=== PATIENT | male | born 1940 | race Caucasian/White ===

== ENCOUNTER → 2020-06-05 14:19 | Outpatient (CLI) | payer MEDICARE, BC, SELFPAY ==
--- NOTE | 2020-06-05 14:26 | XR_ITS ---
PROCEDURE: XR CHEST 2V CLINICAL HISTORY: COMBINED SYSTOLIC AND DISASTOLIC CHF COMPARISON: No exams were available for comparison FINDINGS: There has been a prior CABG. The heart size is normal. No evidence of CHF. Diffuse prominence of the interstitial markings are noted consistent with pulmonary fibrosis. There is blunting of the CP angles which may be due to pleural thickening or small effusions. There is some patchy density in the right lower lung zone laterally which may be due to consolidation or summation density from overlying fibrotic change. There is thickening of the major fissure inferiorly noted on the lateral view. There has been a prior TAVR. No acute bony abnormalities. IMPRESSION: Pulmonary fibrotic changes with blunting of the CP angles with patchy infiltrate versus summation artifact in the right lower lung zone laterally Dictated by: Vishal Felix MD 06/05/2020 16:48 Vishal Felix MD in [place] 06/05/2020 16:48
== END ==
PROVIDERS: PCP Family Medicine; Visit Provider Family Medicine
DX: I50.40 Unspecified combined systolic (congestive) and diastolic (congestive) heart failure (principal)
CPT/HCPCS: 71046

== ENCOUNTER 2020-09-11 15:32 | Inpatient (IN) | payer MEDICARE, BC, SELFPAY ==
[2020-09-11] VITALS (20 sets, daily range): BP systolic 00–180; BP diastolic 00–90; PULSE 55–82; RESP 20–34; TEMP 34.1–36.7; O2SAT 90–100; BMI 24.7
--- NOTE | 2020-09-11 16:28 | XR_ITS ---
PROCEDURE: XR CHEST PORTABLE CLINICAL HISTORY: chf COMPARISON: CR XR CHEST 2V from 06/05/2020 FINDINGS: There is cardiomegaly with pulmonary venous congestion consistent with CHF. There is interstitial lung disease noted as before. There has been a prior CABG. Atelectatic changes are present in the right lung base. No effusions Coronary artery calcifications are noted and there are degenerative changes in the right shoulder. No acute bony abnormalities. IMPRESSION: CHF with chronic interstitial lung disease Dictated by: Vishal Felix MD 09/11/2020 17:14 Vishal Felix MD in [place] 09/11/2020 17:14
--- NOTE | 2020-09-11 16:35 | HMH.HP ---
*Admission Date: 09/11/20 *Chief complaint: Shortness of breath *History of present illness: 80 year old male with history of CAD, Aortic Valve replacement, and LV dysfunction(43% 01/2020) presented to the office today with incresing weakness, SOA, and pedal edema. Patient had been seen in the office two weeks prior and was noted to have progressive edema to the knees and bibasilar rales. He denied fevers or significant sputum production. He denied chest pain. Patient was very pale in appearance. Due to signs of progressive fluid overload patient was admitted for treatment [facility] History I have reviewed the patient's past medical history: Yes Medical History: Reports:: Atrial Fibrillation, Congestive Heart Failure, Coronary Artery Disease, Diabetes Mellitus Type 2, Valvular Heart Disease *Have you ever received a pneumonia vaccine?: Yes *Have you received a flu vaccine this season?: Yes Other Medical History: Reports: Other Comment:: Idiopathic Pulmonary Fibrosis Other Surgeries: Yes: CABG, Cardiac Catheterization, Cardiac Surgery, Other Valve Replacement (Aortic) - *Social History Smoking Status: Never smoker Alcohol Intake: never Substance Use Type: denies use *Occupational Status:: retired *Travel in the last 8 weeks: None Family Hx:: No significant family history Review of Systems - Constitutional Reports anorexia, Reports body ache(s), Reports weight gain, Denies increased appetite - Eyes Denies blurry vision - ENT Denies abnormal hearing, Denies difficulty swallowing - *Cardiovascular Reports shortness of breath, Reports shortness of breath with activity, Reports generalized swelling, Denies chest pain at rest - *Respiratory Reports chest congestion, Reports cough, Reports shortness of breath, Denies excessive phlegm production - *Gastrointestinal Denies belching, Denies constipation - *Genitourinary Denies difficulty urinating - *Musculoskeletal Denies joint pain - Integumentary/Breasts Denies hair loss - *Neurologic Reports abnormal hearing - Psychiatric Denies lack of enjoyment - Endocrine Denies excessive sweating Meds Home Medications Medication Instructions Recorded Confirmed Type Apixaban [Eliquis 5mg Tablet] 5 mg PO BID 09/11/20 09/11/20 History Atorvastatin Calcium [Lipitor 40mg 40 mg PO HS 09/11/20 09/11/20 History Tab] Furosemide [Furosemide 20mg Tab*] 20 mg PO DAILY 09/11/20 09/11/20 History Potassium Chloride [Klor-con 20 20 meq PO DAILY 09/11/20 09/11/20 History mEq tablet] Temazepam [Restoril] 15 mg PO HS 09/11/20 09/11/20 History Allergies Allergy/AdvReac Type Severity Reaction Status Date / Time No Known Allergies Allergy Verified 09/11/20 16:56 Exam Vital signs and Labs for Last 24 Hours: Temp Pulse Resp BP Pulse Ox 93.9 F L 66 24 92/62 L 90 L 09/11/20 15:55 09/11/20 15:55 09/11/20 15:55 09/11/20 15:55 09/11/20 15:55 Laboratory Results - last 24 hr 09/11/20 17:00: WBC 10.4, RBC 1.91 L*, Hct 17.6 L*, MCV 92.0, MCH 27.0, MCHC 29.4 L, RDW 18.9 H, Plt Count 245, MPV 9.6, Neut % (Auto) 85.0 H, Lymph % (Auto) 9.5 L, [place] % (Auto) 5.3, Eos % (Auto) 0.2, Baso % (Auto) 0.1, Neut # (Auto) 8.8 H, Lymph # (Auto) 1.0, [place] # (Auto) 0.6, Eos # (Auto) 0.0, Baso # (Auto) 0.0 09/11/20 17:00: Sodium 137, Potassium 4.8, Chloride 102, Carbon Dioxide 10 L, Anion Gap 29.8 H, BUN 96 H, Creatinine 2.20 H, Estimated Creat Clear 30, Estimated GFR 29 L, Est GFR ( Amer) 35 L, Glucose 108 H, Calcium 8.8, Total Bilirubin 1.0, AST 100 H, ALT 73, Alkaline Phosphatase 73, Troponin I 0.07 H, Total Protein 6.5, Albumin 3.6, Globulin 2.9, Albumin/Globulin Ratio 1.2 09/11/20 17:00: NT-Pro-B Natriuret Pep 23554 H 09/11/20 17:00: Lactate 9.4 H I & O for Last 24 hours: Intake & Output 09/09/20 09/10/20 09/11/20 09/12/20 11:59 11:59 11:59 11:59 Weight 182 lb - Constitutional no acute distress Comments: sallow - *Routine HEENT Exam Head: Pre
[2020-09-11 17:23] LABS: Basophils % 0.1 % (0.1-2.0); Eosinophils % 0.2 % (0.1-12.0); Lymphocytes % 9.5 % (10-50); Mean Corpuscular HGB Conc 29.4 g/dL (31.8-35.4); Mean Platelet Volume 9.6 fl (7.4-10.4); Monocytes # 0.6 K/mm3 (0.1-1.0); Monocytes % 5.3 % (1.7-9.3); Neutrophils # 8.8 K/mm3 (1.8-7.8); Platelet Count 245 K/mm3 (142-424); Red Blood Count 1.91 M/mm3 (4.60-6.20); Red Cell Distribution Width 18.9 % (11.5-17.5); White Blood Count 10.4 K/mm3 (4.8-10.8)
[2020-09-11 17:36] LABS: Hematocrit 17.6 % (42.0-52.0)
[2020-09-11 17:38] LABS: MANUAL DIFFERENTIAL MANUAL DIFFERENTIAL (MANUAL DIFF)
[2020-09-11 17:42] LABS: Chloride 102 mmol/L (98-107); Potassium 4.8 mmoL/L (3.5-5.1); Sodium 137 mmol/L (136-145)
[2020-09-11 17:45] LABS: Alanine Aminotransferase 73 U/L (12-78); Alkaline Phosphatase 73 U/L (38-126); Anion Gap 29.8 mEq/L (5-15); Aspartate Amino Transferase 100 U/L (17-59); Creatinine Clearance Estimated 30 mL/min (50-200); Estimated Glomerular Filt Rate 29 ml/min (>60); GFR (African American) 35 ML/MIN (>60)
[2020-09-11 17:46] LABS: Albumin Level 3.6 g/dl (3.5-5.0); Albumin/Globulin Ratio 1.2 (1.1-1.8); Calcium 8.8 mg/dl (8.4-10.2); Globulin 2.9 g/dL (1.3-3.2); Glucose 108 mg/dl (74-100); Total Protein,Serum 6.5 g/dl (6.3-8.2)
--- NOTE | 2020-09-11 17:47 | ECG_ITS ---
APPROVED REPORT Exam: Resting ECG HR:69 bpm ECG Measurements Heart Rate 69 AXES ND 264 P 83 QRSd 174 QRS 119 QT 476 T -83 QTc 510 Conclusion Sinus rhythm with 1st degree AV block with premature atrial complexes with aberrant conduction Right bundle branch block T wave abnormality, consider inferolateral ischemia Abnormal ECG Electronically signed by : Edwardo Smith, 09/11/2020 21:33:23
[2020-09-11 17:55] LABS: NT Pro Brain Natriuretic Pep. 14600 pg/mL (0-450)
[2020-09-11 17:57] LABS: Troponin I 0.07 ng/ml (0.00-0.034)
[2020-09-11 18:15] LABS: Lactic Acid 9.4 mmol/L (0.7-2.1)
[2020-09-11 18:17] LABS: Blood Urea Nitrogen 96 mg/dl (9-20); Carbon Dioxide 10 mmol/L (22.0-30.0)
--- NOTE | 2020-09-11 19:12 | PC.NURSE ---
PRN tylenol 650 mg given at this time, po. Received order for 650 mg po prn q [address] Ennis.
[2020-09-11 19:56] LABS: Lymphocytes % 10 % (10-50); Monocytes % 16 % (2-9); Neutrophils % 74 % (42-76); Total Cells Counted 100
[2020-09-11 19:58] LABS: Anisocytosis 1+; Macrocytosis 1+; Microcytosis 1+
[2020-09-11 19:59] LABS: Hypochromasia 2+; Platelet Estimate Normal
--- NOTE | 2020-09-11 20:26 | PC.NURSE ---
Dr. Ennis made aware of critical lab values and ordered x 2 units of blood. PRN tylenol and zofran ordered per mar. CB in reach. Dr. Ennis doesn't want a bolus with lactic of 9.4 at this time. Pt is soa and very edematous in ble, 2-4 plus pitting an has chf.Rocephin was given per mar with pt's sirs and bp on the lower end, Dr. Ennis was made aware of. Pt has been on bare hugger as well for temp of 93.3 when arriving as a direct admit. Pts stated meds taken and gave list, but wasn't completely sure of all meds. Report given to Lynda Kiser RN.
[2020-09-11 20:43] LABS: Hemoglobin 5.2 g/dL (14.1-18.0)
[2020-09-11 21:17] LABS: Reflex Lactic Add Lactic Reflex
[2020-09-11 21:27] LABS: POC Glucose,Bedside 95 (70-110)
[2020-09-11 21:34] LABS: ABG Base Excess -26.4 mmol/L (-2.4-2.3); ABG HCO3 6.1 mmhg (22.0-26.0); ABG Oxygen Saturation 100 % (90-100); ABG PCO2 29.9 mmhg (35.0-45.0); ABG PO2 471.9 mmhg (80-100)
--- NOTE | 2020-09-11 21:39 | ECG_ITS ---
APPROVED REPORT Exam: Resting ECG HR:107 bpm ECG Measurements Heart Rate 107 AXES [place] 224 P QRSd 162 QRS 120 QT 376 T -88 QTc 501 Conclusion Sinus tachycardia with 1st degree AV block Nonspecific intraventricular block Possible Right ventricular hypertrophy Lateral infarct, age undetermined T wave abnormality, consider inferior ischemia T wave abnormality, consider anterior ischemia Abnormal ECG Electronically signed by : Edwardo Smith, 09/12/2020 21:33:37
--- NOTE | 2020-09-11 21:39 | XR_ITS ---
PROCEDURE INFORMATION: Exam: XR Chest Exam date and time: 09/11/2020 9:39 PM Age: 80 years old Clinical indication: Other: Patient stopped breathing on his own, code blue. ; Additional info: Intubation TECHNIQUE: Imaging protocol: XR of the chest. Views: 1 view. COMPARISON: CR XR CHEST PORTABLE 09/11/2020 4:37 PM FINDINGS: Tubes, catheters and devices: Endotracheal tube in good position; Pacer pad projects over the left hemithorax Lungs: Moderate interstitial prominence. Pleural spaces: Unremarkable. No pleural effusion. No pneumothorax. Heart/Mediastinum: Moderate cardiac enlargement Bones/joints: Unremarkable. Other findings: Rotation. IMPRESSION: 1. Endotracheal tube in good position 2. Findings concerning for CHF and edema
[2020-09-11 21:49] LABS: Microscopic, Urine URINE MICROSCOPIC (MICROSCOPIC)
[2020-09-11 21:51] LABS: Appearance,Urine CLEAR (Clear); Bilirubin,Urine Negative (Negative); Blood, Urine Negative (Negative); Color,Urine YELLOW (Yellow); Glucose,Urine (UA) Negative (Negative); Ketones,Urine Negative (Negative); Leukocyte Esterase,Urine Negative (Negative); Nitrate,Urine Negative (Negative); PH,Urine 5.5 (5.0-8.5); Protein,Urine Negative (Negative); Urobilinogen,Urine 0.2 EU/dl (0.2)
[2020-09-11 21:52] LABS: Calcium 8.6 mg/dl (8.4-10.2); Chloride 103 mmol/L (98-107); Creatinine Clearance Estimated 25 mL/min (50-200); Estimated Glomerular Filt Rate 23 ml/min (>60); GFR (African American) 28 ML/MIN (>60); Sodium 137 mmol/L (136-145)
[2020-09-11 21:55] LABS: Anion Gap 35.2 mEq/L (5-15)
[2020-09-11 21:58] LABS: Blood Urea Nitrogen 95 mg/dl (9-20); Carbon Dioxide < 5 mmol/L (22.0-30.0)
[2020-09-11 22:00] LABS: Potassium 6.2 mmoL/L (3.5-5.1)
[2020-09-11 22:02] LABS: Glucose 59 mg/dl (74-100)
[2020-09-11 22:03] LABS: Lactic Acid Follow Up (RFLX 1) 12.1 mmol/L (0.7-2.1)
[2020-09-11 22:04] LABS: Troponin I 0.19 ng/ml (0.00-0.034)
[2020-09-11 22:09] LABS: Basophils % 0.2 % (0.1-2.0); Eosinophils % 0.1 % (0.1-12.0); Lymphocytes # 2.6 K/mm3 (0.7-4.5); Lymphocytes % 18.4 % (10-50); Mean Corpuscular HGB Conc 28.4 g/dL (31.8-35.4); Mean Corpuscular Hemoglobin 27.1 pg (27.0-31.2); Mean Corpuscular Volume 95.3 fl (80-94); Mean Platelet Volume 9.8 fl (7.4-10.4); Monocytes # 0.8 K/mm3 (0.1-1.0); Monocytes % 5.8 % (1.7-9.3); Neutrophils # 10.7 K/mm3 (1.8-7.8); Neutrophils % 75.5 % (37.0-80.0); Platelet Count 293 K/mm3 (142-424); Red Blood Count 1.83 M/mm3 (4.60-6.20); Red Cell Distribution Width 18.7 % (11.5-17.5); White Blood Count 14.2 K/mm3 (4.8-10.8)
[2020-09-11 22:31] LABS: Hematocrit 17.4 % (42.0-52.0)
--- NOTE | 2020-09-11 23:11 | HMH.RR ---
Acute Rapid Response Note - Subjective Date Responded: 09/11/20 Time Responded: 21:15 Provider Note: called madelin villanueva red with pt with acute resp failure and dec bp and response to stimuli - on arrival not breathing and resp assistance started - ppulse w/o bp and no resp to stimuli- pt with ivf and brief cpr as he lost pulse with acls protocol - pt was intubated with 7.5 et tube w/o diff and good position by all measures - given ivf and abg and and labs obtained and ekg which was similar to prev- - discussed with dr escalera and family- pt was spont resp and intact blood pressure with labs pending - Objective Findings: Vital Signs - Last 4 Hours Temperature 98.1 F 09/11/20 20:57 Temperature Source Rectal 09/11/20 20:57 Pulse Rate 63 09/11/20 20:00 Respiratory Rate 34 H 09/11/20 20:00 Blood Pressure 110/40 L 09/11/20 20:00 Blood Pressure Mean 63 09/11/20 20:00 Blood Pressure Source Automatic Cuff 09/11/20 20:00 Blood Pressure Position Supine 09/11/20 20:00 02 Sat by Pulse Oximetry 97 09/11/20 20:00 Oxygen Delivery Method 09/11/20 20:00 Oxygen Flow Rate (LPM) 3 09/11/20 20:00 Lab Results for Past 12 Hours 09/11/20 21:45: Urine Color Yellow, Urine Appearance Clear, Urine pH 5.5, Ur Specific [place] 1.020, Urine Protein Negative, Urine Glucose (UA) Negative, Urine Ketones Negative, Urine Blood Negative, Urine Nitrate Negative, Urine Bilirubin Negative, Urine Urobilinogen 0.2, Ur Leukocyte Esterase Negative 09/11/20 21:35: Sodium 137, Potassium 6.2 H* D, Chloride 103, Carbon Dioxide < 5 L* D, Anion Gap 35.2 H, BUN 95 H, Creatinine 2.70 H D, Estimated Creat Clear 25, Estimated GFR 23 L, Est GFR ( Amer) 28 L, Glucose 59 L D, Calcium 8.6, Troponin I 0.19 H 09/11/20 21:35: WBC 14.2 H D, RBC 1.83 L*, Hct 17.4 L*, MCV 95.3 H, MCH 27.1, MCHC 28.4 L, RDW 18.7 H, Plt Count 293, MPV 9.8, Neut % (Auto) 75.5, Lymph % (Auto) 18.4, [place] % (Auto) 5.8, Eos % (Auto) 0.1, Baso % (Auto) 0.2, Neut # (Auto) 10.7 H, Lymph # (Auto) 2.6, [place] # (Auto) 0.8, Eos # (Auto) 0.0, Baso # (Auto) 0.0 09/11/20 21:19: POC Glucose 95 09/11/20 21:12: Lactate 12.1 H 09/11/20 20:20: Blood Type Confirm B Positive 09/11/20 19:05: Blood Type B Positive, Antibody Screen Negative, Crossmatch ([facility]) See Detail 09/11/20 17:00: Lactate 9.4 H 09/11/20 17:00: NT-Pro-B Natriuret Pep 62204 H 09/11/20 17:00: Sodium 137, Potassium 4.8, Chloride 102, Carbon Dioxide 10 L, Anion Gap 29.8 H, BUN 96 H, Creatinine 2.20 H, Estimated Creat Clear 30, Estimated GFR 29 L, Est GFR ( Amer) 35 L, Glucose 108 H, Calcium 8.8, Total Bilirubin 1.0, AST 100 H, ALT 73, Alkaline Phosphatase 73, Troponin I 0.07 H, Total Protein 6.5, Albumin 3.6, Globulin 2.9, Albumin/Globulin Ratio 1.2 09/11/20 17:00: WBC 10.4, RBC 1.91 L*, Hgb 5.2 L*, Hct 17.6 L*, MCV 92.0, MCH 27.0, MCHC 29.4 L, RDW 18.9 H, Plt Count 245, MPV 9.6, Neut % (Auto) 85.0 H, Lymph % (Auto) 9.5 L, [place] % (Auto) 5.3, Eos % (Auto) 0.2, Baso % (Auto) 0.1, Neut # (Auto) 8.8 H, Lymph # (Auto) 1.0, [place] # (Auto) 0.6, Eos # (Auto) 0.0, Baso # (Auto) 0.0, Total Counted 100, Neutrophils % (Manual) 74, Lymphocytes % (Manual) 10, Monocytes % (Manual) 16 H, Platelet Estimate Normal, RBC Morphology Not Reportable, Hypochromasia 2+, Anisocytosis 1+, Microcytosis 1+, Macrocytosis 1+ My Orders Category Date Time Status Chest XR -- portable [XR chest portable] Stat Exams 09/11/20 21:39 Completed BMP [Basic Metabolic Panel] Stat Lab 09/11/20 21:35 Completed CBC [Complete Blood Count Auto Diff] Stat Lab 09/11/20 21:35 Results Trop I [Troponin I] Stat Lab 09/11/20 21:35 Completed ABG [Arterial Blood Gas] Stat RT 09/11/20 21:38 Ordered 12-lead EKG Request [ECG Request by /Angélica] Stat Y 09/11/20 21:39 Ordered - Radiology Findings #1 Xray Reviewed: Chest Image Reviewed: Yes I reviewed the patient's radiology image ED XR Results: Abnormal (et tube ok) - ECG Data Tracing #1 Arrhythmias present: sinus tach Is
--- NOTE | 2020-09-11 23:35 | PC.NURSE ---
Report received from Robinson Lamas RN. At shift change, pt was uncomfortable and requested to be repositioned. He also c/o soa. Pt was noted to have pulled IV out accidentally. New IV was placed . #20 in LFA. Bed linens was changed. Consent for blood was obtained and placed on chart. Rectal temp was obtained 98.1. Lab was called for update on blood transfusion.Lab came to room shortly after to obtain labs and then told staff that was concerned about how pt was acting. After entering room pt was noted to be nonresponsive with agonal breathing. 2115 shallow pulse noted. 2116. Rapid red response initiated. 2118 MD Tucker at bedside. Pt intubated 2119. 2124 FSBS 95. 2124 F/C placed. Urine obtained and sent to lab. At 2121 No pulse obtained. CPR initiated. 2121 Epinephrine 1 mg. Atropine 1 mg admin 2122. Pulse obtained @ 2123. Sinus with BBB. 2139 2 amp Bicarb administered. MD Smith notified of pt status. 2143 MD Smith spoke with MD Tucker on phone. 2152 MD Smith notified of difficulty maintaining pressure. New orders received. Levophed gtt. Titrate to maintain MAP of 65 or greater. Pt moved to new room. 2252, updated on status of pt, labs and that blood was not ready yet. 4 BP not able to be obtained. Levophed gtt max @ 30 mcg/min. Blood not ready yet according to lab. states he is coming in to talk to family.
[2020-09-11 23:42] LABS: Reflex Lactic (2 hrs) Add Lactic Reflex
[2020-09-11 23:50] LABS: ABG Base Excess -25.5 mmol/L (-2.4-2.3); ABG HCO3 6.3 mmhg (22.0-26.0); ABG Oxygen Saturation 100 % (90-100); ABG PCO2 28.5 mmhg (35.0-45.0); ABG PO2 436.5 mmhg (80-100); ABG TCO2 7.2 mmhg (23-27); Oxygen 100% %
[2020-09-11 23:51] LABS: Allen's Test Non Applicable; PEEP 5; Source Right Femoral; Vent Rate 14
[2020-09-11 23:55] LABS: ABG PH 6.97 mmol/L (7.35-7.45)
[2020-09-12] VITALS (21 sets, daily range): BP systolic 00–191; BP diastolic 00–80; PULSE 74–87; RESP 20–35; TEMP 35.7–36.9; O2SAT 100; BMI 26.9
--- NOTE | 2020-09-12 | PC.NURSE ---
MD Smith at bedside speaking with family about pt status. Family signed DNR and do not want further interventions if pt codes. New orders received. Lovenox per VTE protocol, Protonix 40 mg IV. Start Dopamine at 0200 if pt maintains BP above 100 systolic. DC additonal Lactic acid. No 2 hr post H&H.
[2020-09-12 00:02] LABS: Allen's Test Non Applicable; Oxygen 100% %; Source Right Femoral
[2020-09-12 00:03] LABS: ABG PH 6.93 mmol/L (7.35-7.45)
[2020-09-12 00:11] LABS: Squamous Epithelial Cell,Urine Occasional #/hpf (0-5); WBC,Urine Occasional #/hpf (0-3)
--- NOTE | 2020-09-12 01:44 | PC.NURSE ---
Spoke with TAWANNA about pt status. They will continue to monitor.
--- NOTE | 2020-09-12 03:15 | PC.NURSE ---
There was difficulty obtaining VS during blood transfusions.
--- NOTE | 2020-09-12 04:50 | PC.NURSE ---
aware that blood is being transfused emergently
[2020-09-12 05:09] LABS: Hemoglobin 4.9 g/dL (14.1-18.0)
--- NOTE | 2020-09-12 06:02 | PC.NURSE ---
FSBS 29. Stat glucose ordered. D50 amp administered. Pt went asystole then HEartbeat returned. MD notified of pt status. Glucose checked again resulting 41. Amp D50 administered. Pt went asystole again, then heartbeat returned. Pt has been bradycardic then returning to asystole. BP 0545 70/38. 0550 70/20. Family at bedside and aware of pt status.
--- NOTE | 2020-09-12 06:11 | PC.NURSE ---
No BP obtained at this time.
--- NOTE | 2020-09-12 06:15 | PC.NURSE ---
MD notified that family wants to turn off all gtts. Levophed turned off. Dopamine gtt turned off.
--- NOTE | 2020-09-12 06:44 | PC.NURSE ---
Pt asystole. SKIP CHOI paged.
--- NOTE | 2020-09-12 07:00 | P.DN_ITS ---
Pronouncement Note - Date and Time of Date of : 09/12/20 Time of : 06:38 - PCOD Preliminary cause of : Congestive heart failure - Additional Data Confirmation of : no pulse, no respirations, pupils fixed and dilated Family: at bedside Attending/PCP notified?: Yes Attending physician: Edwardo Ennis MD Was code activated?: No Autopsy requested?: No motor vehicle examiner notified?: No Organ bank notified?: Yes Advance directives: Yes
--- NOTE | 2020-09-12 07:07 | PC.NURSE ---
Pt at 0638. Cornel notified and ruled out for donation. case # [id number] Priya Cueva.
--- NOTE | 2020-09-12 07:08 | PC.NURSE ---
Plant Protection Supervisor consulted and ruled out.
--- NOTE | 2020-09-12 07:31 | HMH.DCSUM ---
General - General Admission date:: 09/11/20 Discharge date: 09/12/20 HPI HPI: 80 year old male with history of CAD, Aortic Valve replacement, and LV dysfunction(43% 01/2020) presented to the office today with incresing weakness, SOA, and pedal edema. Patient had been seen in the office two weeks prior and was noted to have progressive edema to the knees and bibasilar rales. He denied fevers or significant sputum production. He denied chest pain. Patient was very pale in appearance. Due to signs of progressive fluid overload patient was admitted for treatment Hospital Course Hospital Course: Patient was admitted and found to be profoundly anemic with a hemoglobin of 5.2. Patient's last hemoglobin for comparison was in late July and was greater than 11. Patient's reports 3 days prior patient had had a large dark bowel movement but because he was on iron she had not thought it significant at the time. The patient had not complained of any melena. Patient was typed and crossed and plan was to transfuse 2 units of packed red blood cells. Due to high suspicion for GI bleed patient was started on pantoprazole. Patient takes Eliquis and aspirin at home for coronary artery disease and history of A. fib. These medications were held. Patient's anemia along with acute kidney injury contributed to metabolic acidosis which was the reason for his elevated lactic acid. Patient also had signs of acute congestive heart failure. Patient's EF is 43% on echocardiogram performed at outside facility in January 2020. Plan had been to repeat echocardiogram on the morning of September 12. Patient was hypothermic on presentation. This is also due to his anemia and blood loss. Bear hugger was used to warm the patient and his temperature returned to normal. Blood cultures were drawn and patient was empirically started on Rocephin. Suspicion for infection was low. On the evening of admission a rapid response read was called that transition to a CODE BLUE. Patient ended up intubated and was placed on vasopressors to maintain his blood pressure. Patient's prognosis was poor. Blood transfusion was started. Dr. Mayo, the on-call physician, spoke with the family and decision was made to maintain the intubated state but patient was made a DO NOT RESUSCITATE. On the morning of September 12 family recommended withdrawal of life support measures. They are which was granted. Patient passed and was pronounced early on the morning of September 12. Objective Vital signs: Temp Pulse Resp BP Pulse Ox 97.7 F 87 24 70/20 L 100 09/12/20 05:00 09/12/20 05:00 09/12/20 05:00 09/12/20 05:50 09/12/20 05:00 Results Labs on day of discharge: Labs from last 24 hours 09/11/20 09/11/20 09/11/20 23:40 21:45 21:35 WBC RBC Hgb Hct MCV MCH MCHC RDW Plt Count MPV Neut % (Auto) Lymph % (Auto) [place] % (Auto) Eos % (Auto) Baso % (Auto) Neut # (Auto) Lymph # (Auto) [place] # (Auto) Eos # (Auto) Baso # (Auto) Total Counted Neutrophils % (Manual) Lymphocytes % (Manual) Monocytes % (Manual) Platelet Estimate RBC Morphology Hypochromasia Anisocytosis Microcytosis Macrocytosis Specimen Source Right femoral O2 % 100% ABG pH 6.97 L* ABG pCO2 28.5 L ABG pO2 436.5 H ABG HCO3 6.3 L ABG Total CO2 7.2 L ABG O2 Saturation 100 ABG Base Excess -25.5 L Vishal Test Non applicable Vent Rate 14 PEEP 5 Sodium 137 Potassium 6.2 H* D Chloride 103 Carbon Dioxide < 5 L* D Anion Gap 35.2 H BUN 95 H Creatinine 2.70 H D Estimated Creat Clear 25 Estimated GFR 23 L Est GFR ( Amer) 28 L Glucose 59 L D POC Glucose Lactate Calcium 8.6 Total Bilirubin AST ALT Alkaline Phosphatase Troponin I 0.19 H NT-Pro-B Natriuret Pep Total Protein Albumin Globulin
--- NOTE | 2020-09-12 07:32 | PC.NURSE ---
Post Mortem care being provided. Pt's family want pt to go to [facility].
--- NOTE | 2020-09-12 08:07 | PC.NURSE ---
received report from Lynda gonzalez at approx [phone]. Will call [facility] when family is ready
--- NOTE | 2020-09-12 08:34 | HMH.ACPN2 ---
Internal Medicine - PN: Subj *Date: 09/12/20 *Time: 08:34 Interval history: Late entry cross cover internal medicine note: I was called on cross cover after the rapid response where patient became intubated. Patient became hypotensive and exhibited signs of systemic shock. I came to the hospital to evaluate patient, discussed case with family, etc. Briefly, patient was in severe cardiogenic shock with gallop rhythm, severely poor perfusion, hypotensive. Chest x-ray revealed significant cardiomegaly. Patient was severely anemic with hemoglobin of 4. Transfusion of 2 units was given, patient was maxed out on Levophed drip and ventilator settings were adjusted to try to help acidosis. I had a lonnie discussion with his and son and indicated that his overall mortality rate was extremely high based on the severe nature of his shock and evidence of his cardiomegaly and severe systolic heart failure. Patient's decided to transition his care to no CPR/no shock, we continued pressors, fluids and ventilatory support. However, as expected the patient became more bradycardic and perfusion status worsened over the next 4 to 5 hours. Around 5 AM the family asked that pressor support we withdrawn and the patient as noted. Please note 2 hours critical care time including personal exam, discussion with family, record review. Exam Vital signs and Labs for Last 24 Hours: Temp Pulse Resp BP Pulse Ox 97.7 F 87 24 70/20 L 100 09/12/20 05:00 09/12/20 05:00 09/12/20 05:00 09/12/20 05:50 09/12/20 05:00 Laboratory Results - last 24 hr 09/11/20 17:00: WBC 10.4, RBC 1.91 L*, Hgb 5.2 L*, Hct 17.6 L*, MCV 92.0, MCH 27.0, MCHC 29.4 L, RDW 18.9 H, Plt Count 245, MPV 9.6, Neut % (Auto) 85.0 H, Lymph % (Auto) 9.5 L, [place] % (Auto) 5.3, Eos % (Auto) 0.2, Baso % (Auto) 0.1, Neut # (Auto) 8.8 H, Lymph # (Auto) 1.0, [place] # (Auto) 0.6, Eos # (Auto) 0.0, Baso # (Auto) 0.0, Total Counted 100, Neutrophils % (Manual) 74, Lymphocytes % (Manual) 10, Monocytes % (Manual) 16 H, Platelet Estimate Normal, RBC Morphology Not Reportable, Hypochromasia 2+, Anisocytosis 1+, Microcytosis 1+, Macrocytosis 1+ 09/11/20 17:00: Sodium 137, Potassium 4.8, Chloride 102, Carbon Dioxide 10 L, Anion Gap 29.8 H, BUN 96 H, Creatinine 2.20 H, Estimated Creat Clear 30, Estimated GFR 29 L, Est GFR ( Amer) 35 L, Glucose 108 H, Calcium 8.8, Total Bilirubin 1.0, AST 100 H, ALT 73, Alkaline Phosphatase 73, Troponin I 0.07 H, Total Protein 6.5, Albumin 3.6, Globulin 2.9, Albumin/Globulin Ratio 1.2 09/11/20 17:00: NT-Pro-B Natriuret Pep 04065 H 09/11/20 17:00: Lactate 9.4 H 09/11/20 19:05: Blood Type B Positive, Antibody Screen Negative, Crossmatch ([facility]) See Detail 09/11/20 20:20: Blood Type Confirm B Positive 09/11/20 21:12: Lactate 12.1 H 09/11/20 21:19: POC Glucose 95 09/11/20 21:32: Specimen Source Right femoral, O2 % 100%, ABG pH 6.93 L*, ABG pCO2 29.9 L, ABG pO2 471.9 H, ABG HCO3 6.1 L, ABG Total CO2 7.0 L, ABG O2 Saturation 100, ABG Base Excess -26.4 L, Vishal Test Non applicable 09/11/20 21:35: WBC 14.2 H D, RBC 1.83 L*, Hgb 4.9 L*, Hct 17.4 L*, MCV 95.3 H, MCH 27.1, MCHC 28.4 L, RDW 18.7 H, Plt Count 293, MPV 9.8, Neut % (Auto) 75.5, Lymph % (Auto) 18.4, [place] % (Auto) 5.8, Eos % (Auto) 0.1, Baso % (Auto) 0.2, Neut # (Auto) 10.7 H, Lymph # (Auto) 2.6, [place] # (Auto) 0.8, Eos # (Auto) 0.0, Baso # (Auto) 0.0 09/11/20 21:35: Sodium 137, Potassium 6.2 H* D, Chloride 103, Carbon Dioxide < 5 L* D, Anion Gap 35.2 H, BUN 95 H, Creatinine 2.70 H D, Estimated Creat Clear 25, Estimated GFR 23 L, Est GFR ( Amer) 28 L, Glucose 59 L D, Calcium 8.6, Troponin I 0.19 H 09/11/20 21:45: Urine Color Yellow, Urine Appearance Clear, Urine pH 5.5, Ur Specific [place] 1.020, Urine Protein Negative, Urine Glucose (UA) Negative, Urine Ketones Negative, Urine Blood Negative, Urine Nitrate Negative, Urine Bilirubin Negative, Urine Urobilinogen 0.2, Ur Leukocyte Esterase Negative, Urine RBC
--- NOTE | 2020-09-12 09:19 | PC.NURSE ---
[facility] present at this time
[2020-09-13 18:44] LABS: Peripheral Smear Review Scanned Result
== END 2020-09-12 09:30 | disposition expired | DRG 377 ==
PROVIDERS: Emergency Medicine; Admitting Provider Family Medicine; PCP Family Medicine; Visit Provider Family Medicine
DX: I50.23 Acute on chronic systolic (congestive) heart failure (principal); K92.2 Gastrointestinal hemorrhage, unspecified; J96.00 Acute respiratory failure, unspecified whether with hypoxia or hypercapnia; D62 Acute posthemorrhagic anemia; N17.9 Acute kidney failure, unspecified; E87.2 Acidosis; Z20.822 Contact with and (suspected) exposure to COVID-19; I48.91 Unspecified atrial fibrillation; I25.10 Atherosclerotic heart disease of native coronary artery without angina pectoris; Z95.1 Presence of aortocoronary bypass graft; Z95.2 Presence of prosthetic heart valve; J84.112 Idiopathic pulmonary fibrosis; Z79.01 Long term (current) use of anticoagulants; I95.9 Hypotension, unspecified; R68.0 Hypothermia, not associated with low environmental temperature; R57.0 Cardiogenic shock
CPT/HCPCS: 31500; 94002; 36415; 71045; 80048; 80053; 81001; 82803; 82962; 83605; 83880; 84484; 85007; 85025; 86850; 87040; 93005; 93306; 94760; P9016; U0003